=== PATIENT | female | born 1960 | race Caucasian/White ===

== ENCOUNTER → 2022-01-29 | Outpatient (CLI) | payer BC ==
[~2022-01-29] MED LIST: LEXAPRO20 MG PO; LOSARTAN POTASS50 MG PO; MAGNESIUM250 M1 PO; MULTI-VITAMIN1 EACH PO; OXYBUTYNIN CHLO15 MG PO; PROTONIX 40 MG40 M1 PO
[2022-01-29 10:10] LABS: BUN/CREATININE RATIO 21 (0-10)
[2022-01-29 11:02] LABS: RED BLOOD COUNT 4.18 M/UL (4.00-5.10); WHITE BLOOD COUNT 4.9 K/UL (4.5-11.0)
== END ==
LOC: OPSV2 08:00 → EDSTATUS 08:00 → OPSV2 08:13
PROVIDERS: Orthopaedic Surgery
DX: Z01.812 Encounter for preprocedural laboratory examination (principal); M17.12 Unilateral primary osteoarthritis, left knee
CPT/HCPCS: 80048; 85025

== ENCOUNTER → 2022-02-10 | Outpatient (CLI) | payer BC ==
[~2022-02-10] MED LIST changes: +ASPIR-TRIN325 MG PO; +HYDROCODON-ACE1 EAC2 PO; +VITAMIN D325 MCG PO
[2022-02-10 12:24] LABS: BUN/CREATININE RATIO 30 (0-10)
== END ==
LOC: LAB 11:07
PROVIDERS: Orthopaedic Surgery
DX: Z01.812 Encounter for preprocedural laboratory examination (principal); M17.12 Unilateral primary osteoarthritis, left knee
CPT/HCPCS: 80048; 86850; 86900; 86901

== ENCOUNTER → 2022-02-11 | Day surgery (SDC) | payer BC ==
[~2022-02-11] VITALS: Ht 154.9 cm; Wt 88.9 kg
== END | disposition home or self-care (01) ==
LOC: OR 06:13
DX: M17.12 Unilateral primary osteoarthritis, left knee (principal); G89.18 Other acute postprocedural pain; I10 Essential (primary) hypertension; K21.9 Gastro-esophageal reflux disease without esophagitis; E66.9 Obesity, unspecified; F32.A Depression, unspecified; F41.9 Anxiety disorder, unspecified; Z79.899 Other long term (current) drug therapy; Z68.37 Body mass index [BMI] 37.0-37.9, adult
CPT/HCPCS: 73560; 76000; 97161; 97166; 97530; C1713; C1776; J0690; J1100; J1170; J1885; J2001; J2250; J2274; J2405; J2704; J2795; J3010